=== PATIENT | female | born 1975 | race Caucasian/White ===

== ENCOUNTER 2019-11-26 09:57 | Emergency (ER) | payer SELFPAY ==
[2019-11-26 10:02] VITALS: BP 173/119; PULSE 86; RESP 18; TEMP 37.1; O2SAT 97; BMI 29.5
--- NOTE | 2019-11-26 10:10 | CTR_ITS ---
PROCEDURE INFORMATION: Exam: CT Thoracic Spine Without Contrast Exam date and time: 11/26/2019 10:14 AM Age: 44 years old Clinical indication: Injury or trauma; Initial encounter; Blunt trauma (contusions or hematomas); Patient HX: Backwards fall onto rocks while walking C/O upper back pain; Additional info: Fall point tenderness upper thoracic spine TECHNIQUE: Imaging protocol: Computed tomography images of the thoracic spine without contrast. Radiation optimization: All CT scans at this facility use at least one of these dose optimization techniques: automated exposure control; mA and/or kV adjustment per patient size (includes targeted exams where dose is matched to clinical indication); or iterative reconstruction. COMPARISON: No relevant prior studies available. RADIATION DOSE METRICS: Total DLP (mGy-cm): 1674.8 FINDINGS: Vertebrae: Minimal levoscoliosis. Prominent Schmorl's node in the T10 superior vertebral body endplate. Discs/Spinal canal/Neural foramina: No significant disc protrusion. No severe spinal canal stenosis. No significant neural foraminal narrowing. Soft tissues: Unremarkable. Lymph nodes: Calcified bilateral hilar nodes and/or mediastinal nodes and/or lung granulomas consistent with old granulomatous disease. Lungs: Mild paraseptal emphysema. Mild centrilobular emphysema. CT/CT thoracic spin wo con* [id number] IMPRESSION: No acute findings. Radiation Dose CTDIVOL = (mGy): DLP = 1674.8 (mGy-cm)
--- NOTE | 2019-11-26 10:10 | CTR_ITS ---
PROCEDURE INFORMATION: Exam: CT Cervical Spine Without Contrast Exam date and time: 11/26/2019 10:14 AM Age: 44 years old Clinical indication: Injury or trauma; Initial encounter; Blunt trauma; Patient HX: Backwards fall onto rocks while walking C/O neck pain; Additional info: Fall, cerivcal spine point tenderness TECHNIQUE: Imaging protocol: Computed tomography images of the cervical spine without contrast. Radiation optimization: All CT scans at this facility use at least one of these dose optimization techniques: automated exposure control; mA and/or kV adjustment per patient size (includes targeted exams where dose is matched to clinical indication); or iterative reconstruction. COMPARISON: No relevant prior studies available. RADIATION DOSE METRICS: Total DLP (mGy-cm): 517.48 FINDINGS: Vertebrae: alignment is normal. posterior vertebral line and the spinal laminar line normal odontoid process normal no fracture Discs/Spinal canal/Neural foramina: No significant disc protrusion. No severe spinal canal stenosis. No significant neural foraminal narrowing. Soft tissues: Unremarkable. Lungs: The lung apices are normal. CT/CT cervical spin wo con* [id number] IMPRESSION: No fracture. Radiation Dose CTDIVOL = (mGy): DLP = 517.48 (mGy-cm)
--- NOTE | 2019-11-26 10:10 | CTR_ITS ---
PROCEDURE INFORMATION: Exam: CT Head Without Contrast Exam date and time: 11/26/2019 10:14 AM Age: 44 years old Clinical indication: Injury or trauma; Initial encounter; Blunt trauma (contusions or hematomas); With loss of consciousness; Loss of consciousness for 30 minutes or less; Patient HX: Backwards fall onto rocks while walking +loc; Additional info: Chi - fall - + loc TECHNIQUE: Imaging protocol: Computed tomography of the head without contrast. Radiation optimization: All CT scans at this facility use at least one of these dose optimization techniques: automated exposure control; mA and/or kV adjustment per patient size (includes targeted exams where dose is matched to clinical indication); or iterative reconstruction. COMPARISON: No relevant prior studies available. RADIATION DOSE METRICS: Total DLP (mGy-cm): 866.85 FINDINGS: Brain: Hutchison white matter distinction is maintained throughout the brain. No radiographic evidence of intracranial hemorrhage. No CT evidence of mass hemorrhage or acute infarction. Ventricles: Ventricles are of normal size and configuration. Bones/joints: Unremarkable. No acute fracture. Sinuses: Visualized sinuses are unremarkable. No fluid levels. Mastoid air cells: Visualized mastoid air cells are well aerated. Soft tissues: Unremarkable. Other findings: No intra or extra-axial masses, lesions or collections. CT/CT head wo con* [id number] IMPRESSION: No acute intracranial process is appreciated. Radiation Dose CTDIVOL = (mGy): DLP = 866.85 (mGy-cm)
--- NOTE | 2019-11-26 10:14 | W.ED.FALL ---
HPI - Fall General: Chief Complaint: Fall Stated Complaint: FALL Time Seen by Provider: 11/26/19 10:00 Source: patient and family (mother) Mode of arrival: ambulatory History of Present Illness: HPI Narrative: Patient reports was outside, sightseeing when she slipped on grass falling backwards hitting the back of her head and neck, she he is here on vacation. She reports not able to move her neck secondary to pain. Unsure if she lost consciousness, denies nausea vomiting, continues to complain of headache. She presents to the emergency department with her mother. She denies radiculopathy symptoms of the upper or lower extremities. She denies weakness of the upper or lower extremities. She denies previous history of neck pain or radiculopathy symptoms. She states is healthy other than high cholesterol. MD complaint: fall Onset (ago): minute(s) (20) Fall from: standing Fall witnessed: yes, by family (mother) Place fall occurred: other ([place]) Loss of consciousness: Unsure Length of LOC: second(s) Symptoms prior to fall: none Context: tripped/slipped Location of injury: head (posterior), neck (posterior) and back (upper) Severity: severe Severity scale (1-10): 10 Quality: aching Associated symptoms-after fall: Reports headache(s) and neck pain; Denies abdominal pain or chest pain Review of Systems General: Reports: 10 or more systems reviewed and unremarkable except in HPI and below Const: Denies: fever(s), chills or diaphoresis Eyes: Denies: blurry vision or eye redness ENMT: Denies: throat pain, dental pain or disequilibrium Card: Denies: chest pain, palpitations or irregular heart rhythm Resp: Denies: dyspnea, productive cough, non-productive cough or wheezing GI: Denies: abdominal pain, nausea or vomiting : Denies: difficulty voiding or dysuria Musc: Reports: neck pain Skin/Breast: Denies: rash or pruritus Neuro: Reports: headache(s) [place]/Lymph: Denies: easy bruising Physical Exam Const: COMMON NORMALS: no acute distress, patient oriented x3, healthy appearing and alert GENERAL APPEARANCE: cooperative, well hydrated and other (uncomfortable, in pain) ORIENTATION/CONSCIOUSNESS: Yes awake HENMT: COMMON NORMALS: normocephalic, Normal external nose present and moist oral mucous membranes HEAD & SCALP: normocephalic NOSE: Normal external nose present THROAT: posterior oropharynx normal Eye: COMMON NORMALS: Equal, round and reactive pupils present and EOMs intact bilaterally GENERAL EYE: appearance normal, both eyes and all related structures PUPIL: Yes Equal, round and reactive pupils present Neck/C-Spine: COMMON NORMALS: no lymphadenopathy GENERAL: Yes normal visual inspection and Yes trachea midline CERVICAL SPINE: Yes cervical ROM abnormal lateral flexion to the right decreased, lateral flexion to the left decreased, rotation to the left decreased, rotation to the right decreased, anterior flexion decreased, extension decreased and other (c-collar immediately ordered verbally to staff), Yes pain with cervical ROM, Yes Cervical spine tenderness C4, C5, C6, C7 and T1 and Yes Paracervical muscle tenderness Lymph: LYMPHATIC: no lymphadenopathy noted Chest: COMMONS NORMALS: normal inspection of the chest and normal palpation of entire chest wall OTHER: chest palpated for tenderness - not able to produce pain, no ecchymosis/erythema - posterior/anterior Resp: COMMON NORMALS: normal respiratory effort and clear to auscultation bilaterally AUSCULTATION: clear to auscultation bilaterally Cardio: COMMON NORMALS: regular rhythm, S1 normal heart sound present, S2 normal heart sound present and Peripheral pulses 2+ throughout RHYTHM: regular rhythm HEART SOUNDS: S1 normal heart sound present and S2 normal heart sound present PERIPHERAL PULSES: Peripheral pulses 2+ throughout GI: COMMON NORMALS: Soft to palpation and non-tender INSPECTION: Yes normal to inspection PALPATION: Yes Soft to palpation Back/Pelvis: THORACIC SPINE/UPPER BACK: Yes thoracic spinal tenderness T-spine tenderness location: T1, T2 and T3 (point tenderness) and Yes paraspinal muscle tenderness OTHER: pelvis stable, hand grasps / BUE, not able to produce pain to the shoulders/BUE - limited ROM due to pain reproduced to the posterior neck BLE strength 5/5; ambulatory, normal gait Extremity: COMMON NORMALS: normal to inspection and capillary refill normal Neuro: COMMON NORMALS: patient oriented x3 and no focal motor deficits SENSORIUM/ORIENTATION: Yes alert Psych: COMMON NORMALS: mental status grossly normal, Normal thought process present and cooperative ACTIVITY/MOTOR BEHAVIOR: Yes appropriate eye contact THOUGHT PROCESS: Normal thought process present Skin: COMMON NORMALS: no rashes or lesions noted and turgor normal GENERAL SKIN EXAM: no rashes or lesions noted and turgor normal Course ED course: 44-year-old female patient presents to the emergency department with complaints of head, neck and upper back pain status post fall after slipping on wet grass. CT of the head, cervical spine, thoracic spine without acute findings. No fractures appreciated. Pain markedly improved per patient. Discussion with patient regarding findings, questions were answered. She was ambulatory in the room without difficulty, reevaluation of extremities completed without further abnormalities Vital Signs: Vital signs: Vital Signs Temperature 98.7 F 11/26/19 10:02 Pulse Rate 72 11/26/19 12:53 Respiratory Rate 18 11/26/19 10:02 Blood Pressure 138/104 11/26/19 12:53 Pulse Oximetry 94 11/26/19 12:53 MDM - Fall Imaging Data^: Other Imaging: Radiologist's impression: [place] [address] CT Scan Report Signed Patient: Tristian Bird #: [id number] : [id number]#:[id number] Age/Sex: 44 / FADM Date: 11/26/19 Loc: ERRoom/Bed: Attending Dr: Ordering Provider/Ordering MD: Naye Hamlin Date of Service: 11/26/19 Procedure(s): CT cervical spin wo con* [id number] Accession Number(s): [id number] Report Number: [id number] PROCEDURE INFORMATION: Exam: CT Cervical Spine Without Contrast Exam date and time: 11/26/2019 10:14 AM Age: 44 years old Clinical indication: Injury or trauma; Initial encounter; Blunt trauma; Patient HX: Backwards fall onto rocks while walking C/O neck pain; Additional info: Fall, cerivcal spine point tenderness TECHNIQUE: Imaging protocol: Computed tomography images of the cervical spine without contrast. Radiation optimization: All CT scans at this facility use at least one of these dose optimization techniques: automated exposure control; mA and/or kV adjustment per patient size (includes targeted exams where dose is matched to clinical indication); or iterative reconstruction. COMPARISON: No relevant prior studies available. RADIATION DOSE METRICS: Total DLP (mGy-cm): 517.48 FINDINGS: Vertebrae: alignment is normal. posterior vertebral line and the spinal laminar line normal odontoid process normal no fracture Discs/Spinal canal/Neural foramina: No significant disc protrusion. No severe spinal canal stenosis. No significant neural foraminal narrowing. Soft tissues: Unremarkable. Lungs: The lung apices are normal. CT/CT cervical spin wo con* [id number] IMPRESSION: No fracture. Radiation Dose CTDIVOL = (mGy): DLP = 517.48 (mGy-cm) Other CT: Radiologist's impression: CT of the cervical spine and thoracic spine without fractures Discharge Plan Discharge Patient Disposition: Home, Self-Care Clinical Impression: Back pain due to injury Fall Qualifiers: Encounter type: initial encounter Qualified Code(s): W19.XXXA - Unspecified fall, initial encounter Head injury Qualifiers: Encounter type: initial encounter Qualified Code(s): S09.90XA - Unspecified injury of head, initial encounter Cervical strain, acute Qualifiers: Encounter type: initial encounter Qualified Code(s): S16.1XXA - Strain of muscle, fascia and tendon at neck level, initial encounter Condition: Stable Prescriptions: New ibuprofen 800 mg tablet 800 mg PO TID MDD 3 PRN (Reason: pain) Qty: 20 RF: 0 cyclobenzaprine 10 mg tablet 10 mg PO TID MDD 3 PRN (Reason: muscle spasm) Qty: 10 RF: 0 Discharge Diet: Usual diet Discharge Activity: Limit activity as instructed Patient Instructions: Minor Head Injury (ED), Acute Low Back Pain (ED), Cervical Sprain (ED), Back Pain (ED) Activity Restrictions/Additional Instructions: Take it easy today, do not engage in any rigorous activity for the next several days. Take ibuprofen as directed on bottle, do not take with any other form of ibuprofen, Aleve or naproxen/Advil. You may supplement pain needed with Tylenol, you can take 1 g of Tylenol, 2/500 mg tablets 3 times daily to achieve pain control. If you develop arm pain, numbness, worsening neck pain, worst headache of your life, inability to walk you will need to return to the emergency department immediately. Follow-up with your primary care provider in the next 1 to 2 weeks. Stand Alone Forms: Work/School Release Discharge Date/Time: 11/26/19 12:53 Coding Level of Care Code ED [employer] for Jeannette Fwgregory Exam Comprehensive
[2019-11-26 10:18] VITALS: O2SAT 96
[2019-11-26] MEDS: ondansetron 2 mg/ML SDV 2 mL 4 MG IVP (10:39)
[2019-11-26] MEDS: morphine 4 mg/mL SDV 1 mL 2 MG IVP (10:39)
--- NOTE | 2019-11-26 10:44 | PC.NURSE ---
pt to ct by stretcher with tech
[2019-11-26 11:42] VITALS: BP 139/92; PULSE 72; O2SAT 93
[2019-11-26] MEDS: ketorolac 30 mg/mL INJ IVP (12:22)
[2019-11-26 12:24] VITALS: BP 143/95; PULSE 82; O2SAT 94
[2019-11-26 12:53] VITALS: BP 138/104; PULSE 72; O2SAT 94
== END 2019-11-26 12:53 | disposition home or self-care (01) ==
PROVIDERS: Emergency Provider Nurse Practitioner Family
DX: S16.1XXA Strain of muscle, fascia and tendon at neck level, initial encounter (principal); S09.90XA Unspecified injury of head, initial encounter; M54.9 Dorsalgia, unspecified; W01.0XXA Fall on same level from slipping, tripping and stumbling without subsequent striking against object, initial encounter
CPT/HCPCS: 12345; 70450; 72125; 72128; 96374; 96375; 99283; J1885; J2270; J2405